=== PATIENT | male | born 1940 | race Caucasian/White ===

== ENCOUNTER → 2017-03-03 | Outpatient (CLI) | payer MEDICARE, BC, OTHER ==
--- NOTE | 2017-03-04 14:56 | REP ---
Whole body PET CT scan: Studies performed for evaluation of multiple right lung nodules identified. Recent chest CT dated 02/27/2017. Whole body PET CT scan is performed from skull base to the upper thighs. Neck and supraclavicular areas: There are no hypermetabolic foci. Chest: There are five foci as follows: 1. Right lung apex posteriorly, 1.7 cm, the standard uptake value 4.5. 2, Right upper lobe anterolaterally pleural-based, one point 1 cm, standard uptake value of 3.1. 3. Superior segment of the right lower lobe at the lateral margin of the major fissure, pleural-based, 1.8 cm, standard uptake value of 6.1. 4. Right upper lobe laterally pleural-based, 1.9 cm, standard uptake value 3.6. 5. Right hilus, 1.3 cm, standard uptake value 7.1. There are no other hypermetabolic foci in the chest. Abdomen, pelvis and upper thighs: There are no hypermetabolic foci. Impression: There are five hypermetabolic foci in the right lung as described. There are no other hypermetabolic foci. The study s performed with 10 millicuries of F 18 FDG. Signed by Sukhjinder Rosenthal MD 03/04/2017 02:48 P
== END ==
LOC: M PLARAD 15:49
PROVIDERS: ATTEND Family Medicine
DX: R91.1 Solitary pulmonary nodule (principal)
CPT/HCPCS: 78815; A9552

== ENCOUNTER → 2017-03-12 | Outpatient (REF) | payer MEDICARE, BC, OTHER ==
[2017-03-12 19:48] LABS: INR 1.74
== END ==
LOC: M LAB REF 19:04
PROVIDERS: ATTEND Internal Medicine Pulmonary Disease
DX: R91.8 Other nonspecific abnormal finding of lung field (principal)

== ENCOUNTER → 2017-03-25 | Outpatient (CLI) | payer MEDICARE, BC, OTHER ==
[~2017-03-25] MED LIST: LIDOCAINE 1% MDV 20ML VIAL As Ordered ONE
--- NOTE | 2017-03-25 10:33 | REP ---
Chest x-ray: Single view. History: Post lung biopsy. Right upper lobe nodule. Comparison chest x-ray February 14, 2017. Findings: There is an ill-defined opacity adjacent to the biopsied nodule in the right lung apex. This corresponds with a small zone of parenchymal hemorrhage seen on CT images. There is no evidence of pneumothorax. 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 Mild cardiomegaly is observed with evidence of left atrial enlargement as before. The aorta is calcific and tortuous. Impression: No pneumothorax seen. Evidence of COPD. Mild cardiomegaly. Signed by Dillon Soriano MD 03/25/2017 02:12 P
--- NOTE | 2017-03-25 15:41 | REP ---
CT GUIDED RIGHT UPPER LOBE LUNG BIOPSY: The procedure was performed under the direct supervision of Dr. Soriano. The patient has a history of a spiculated nodule in the right lung apex measuring 1.6 cm seen on a previous CT scan dated 02/27/2017. This was shown to be hypermetabolic on a PET scan performed on 03/03/2017. The risks and benefits of the procedure were explained to the patient and informed consent was obtained. The right upper lobe lung nodule was localized using CT guidance. The skin was prepped and draped in a sterile fashion. 1% Xylocaine was used as a local anesthetic. Using CT guidance a 19/20-gauge coaxial needle biopsy system was inserted and advanced into the nodule. Four core biopsy samples were obtained. The patient did experience some hemoptysis post procedure. His O2 saturations were 92 to 93% on room air prior to the procedure. His O2 saturations dropped to approximately 80 to 89% on room air while experiencing the hemoptysis. The patient was placed on 2 liters of O2 via nasal cannula. By the time the patient went for his post procedure chest x-ray the hemoptysis had stopped. The patient tolerated the procedure well and there were no immediate complications. After the appropriate amount of monitored convalescence the patient was discharged from the department. Reviewed by YUDITH Samano 03/25/2017 04:17 PEdited and Signed by Dillon Soriano MD 03/25/2017 05:00 P
== END ==
LOC: M RADPRO 08:12
PROVIDERS: ATTEND Internal Medicine Pulmonary Disease
DX: C34.90 Malignant neoplasm of unspecified part of unspecified bronchus or lung (principal); J44.9 Chronic obstructive pulmonary disease, unspecified; I51.7 Cardiomegaly; F17.290 Nicotine dependence, other tobacco product, uncomplicated; Z79.899 Other long term (current) drug therapy